=== PATIENT | male | born 1990 | race Caucasian/White ===

== ENCOUNTER 2020-06-07 15:07 | Emergency (ER) | payer BC, SELFPAY ==
--- NOTE | ~2020-06-07 | XR_ITS ---
EXAMINATION: XR abdomen/kub 1V DATE: 06/07/2020 16:05 INDICATION: Vomiting. TECHNIQUE: A supine view of the abdomen on 2 radiographs was obtained. COMPARISON: None. FINDINGS: There are no dilated loops of bowel. There is a small volume of stool in the colon. IMPRESSION: 1. Normal bowel gas pattern. Reviewed, dictated and finalized at location A. TRY BREEDER
--- NOTE | 2020-06-07 15:15 | ED.GENADULT ---
HPI - General Adult General Chief complaint: Abdominal Pain Stated complaint: Ulcers Time Seen by Provider: 06/07/20 15:15 Source: patient Mode of arrival: ambulatory Limitations: no limitations History of Present Illness HPI narrative: 29-year-old male patient presents to the [facility] with complaints of vomiting and some abdominal pain. Patient states that when he was in the he started having some episodes of vomiting and was told it was anxiety. Patient states at that time he was treated with Zofran and Prozac and states that it did go away. Patient states recently he has had a lot of changes in his life and states that he recently had a new baby that is about 6 weeks old and recently also lost his niece who is only 7 weeks old. Patient states he is not currently on Prozac or any antidepressants at this time. Patient states he is supposed to be seen Dr. Barton sometime next month however when confirmed about when his appointment is Dr. Barton's office do not have him down for an appointment. Patient states that today he has vomited about 3 times. Patient states that the vomiting episodes are getting worse and are coming daily now for the past month. Patient also states he has had some soreness to his abdomen specifically after he has done vomiting. Patient states he is also noticed that his bowel habits are changed and he is only having a bowel movement about once every 3 days. Patient also noticed that his belly is more distended than normal. Patient denies taking any type of MiraLAX or stool softeners. Patient denies any fevers, body aches or chills. Denies any chest pain, shortness of breath. Patient states that the only thing that helps his symptoms of smoking marijuana. Related Data Home Medications Medication Instructions Recorded Confirmed No Home Medications 06/07/20 06/07/20 Allergies Allergy/AdvReac Type Severity Reaction Status Date / Time No Known Allergies Allergy Unverified 06/07/20 15:24 Review of Systems Review of Systems: Narrative: CONSTITUTIONAL: Denies fever, chills, or sweats. EYES: Denies visual changes, redness, or discharge. ENT: Denies rhinorrhea, congestion, sore throat, or otalgia. CARDIOVASCULAR: Denies chest pain, palpitations, or edema. RESPIRATORY: Denies cough or dyspnea. GASTROINTESTINAL: Positive abdominal pain, nausea, vomiting, denies diarrhea. GENITOURINARY: Denies dysuria or hematuria. SKIN: Denies rash or itching. MUSCULOSKELETAL: Denies back pain, joint pain, or myalgia. NEUROLOGIC: Denies headache, numbness, or weakness. PSYCHIATRIC: Positive anxiety and depression. [facility] Past Medical History Medical History (Updated 06/07/20 @ 16:24 by DENNIS Miller) Anxiety Depression Fractures Right hand Hypertension PTSD (post-traumatic stress disorder) Social History Social History (Updated 06/07/20 @ 15:17 by DENNIS Miller) Smoking packs per day: 0.5 Smoking cigarettes per day: 10.0 Years smoked: 8 Smoking pack-years: 4.00 Comments At the time of my signature I agree with nursing past medical history, surgical, social, and family history. There is no relevant family history pertinent to the presenting complaint. Exam Narrative: Exam Narrative: GENERAL: Well-appearing, well-nourished, and in no acute distress. HEAD: Normocephalic, atraumatic. EYES: PERRLA and EOMI. ENT: Nares clear, no rhinorrhea or epistaxis. Mucous membranes moist. NECK: Supple. No lymphadenopathy CHEST: Clear to auscultation. No respiratory distress. HEART: Regular rate and rhythm. No murmur heard. Normal peripheral pulses. ABDOMEN: Soft, flat, nondistended. No guarding, rebound tenderness, or rigid. Patient does have some left lower quadrant abdominal tenderness. No pulsatilla masses. Hyperactive bowel sounds present in all four quadrants. No organomegaly. Negative Montalvo?s sign. No periumbicial tenderness. No Supra public tenderness or distension. Good fe
[2020-06-07 15:28] VITALS: BP 132/92; PULSE 94; RESP 20; TEMP 36.7; O2SAT 98
[2020-06-07] MEDS: ONDANSETRON HCL ODT 4 MG TABLET PO (16:05)
[2020-06-08 12:21] LABS: SARS-CoV-2 RNA PCR Negative
== END 2020-06-07 16:45 | disposition short-term general hospital (02) ==
PROVIDERS: Emergency Provider Nurse Practitioner Family; PCP Family Medicine
DX: R10.32 Left lower quadrant pain (principal); Z20.822 Contact with and (suspected) exposure to COVID-19; R11.2 Nausea with vomiting, unspecified; I10 Essential (primary) hypertension; F17.210 Nicotine dependence, cigarettes, uncomplicated
CPT/HCPCS: 74018; 87426; 99213; A9270; C9803; G0463; U0003; U0005

== ENCOUNTER 2020-11-16 10:55 | Emergency (ER) | payer BC, SELFPAY ==
[2020-11-16 11:02] VITALS: BP 142/93; PULSE 83; RESP 20; TEMP 36.9; O2SAT 99
--- NOTE | 2020-11-16 11:30 | ED.URI ---
HPI - URI/Sore Throat General Chief Complaint: Upper Respiratory Infection Stated Complaint: Possible Strep Throat Time Seen by Provider: 11/16/20 11:30 Source: patient and family History of Present Illness HPI Narrative: Patient presents with a sore throat. No trouble swallowing no drooling. Patient denies any other symptoms. Related Data Allergies Allergy/AdvReac Type Severity Reaction Status Date / Time strawberry Allergy Mild Unknown Verified 11/16/20 11:36 Review of Systems Review of Systems: CONSTITUTIONAL: Denies fever, chills, or sweats. EYES: Denies visual changes, redness, or discharge. ENT: Denies rhinorrhea, congestion, sore throat, or otalgia. CARDIOVASCULAR: Denies chest pain, palpitations, or edema. RESPIRATORY: Denies cough or dyspnea. GASTROINTESTINAL: Denies abdominal pain, nausea, vomiting, or diarrhea. GENITOURINARY: Denies dysuria or hematuria. SKIN: Denies rash or itching. MUSCULOSKELETAL: Denies back pain, joint pain, or myalgia. NEUROLOGIC: Denies headache, numbness, or weakness. PSYCHIATRIC: Denies anxiety or depression. [facility], [facility] Past Medical History Medical History (Updated 11/16/20 @ 12:06 by DENNIS Mirza) Anxiety Depression Fractures Right hand Hypertension PTSD (post-traumatic stress disorder) Upper respiratory infection, viral Social History Social History Smoking packs per day: 0.5 Smoking cigarettes per day: 10.0 Years smoked: 8 Smoking pack-years: 4.00 Comments At time of signature, agree with nursing past medical, surgical, social and family history. There is no relevant family history pertinent to the presenting complaint Exam Narrative: GENERAL: Well-appearing, well-nourished, and in no acute distress. HEAD: Normocephalic, atraumatic. EYES: PERRLA and EOMI. ENT: Nares clear, no rhinorrhea or epistaxis. Mucous membranes moist. NECK: Supple. CHEST: Clear to auscultation. No respiratory distress. HEART: Regular rate and rhythm. No murmur heard. Normal peripheral pulses. ABDOMEN: Soft, nontender, nondistended, normal active bowel sounds. EXTREMITIES: Normal range of motion. No edema. SKIN: Warm, dry, no rash. NEURO: No focal deficits. Alert and oriented x3. [place] Coma Scale Eye Opening: Spontaneous 4 [place] Coma Scale Motor: Obeys Commands 6 [place] Coma Scale Verbal: Oriented 5 Stacey Coma Scale Total 15 Course Vital Signs Vital signs: Vital Signs Temperature 36.9 C 11/16/20 11:02 Pulse Rate 83 11/16/20 11:02 Respiratory Rate 20 11/16/20 11:02 Blood Pressure 142/93 H 11/16/20 11:02 Pulse Oximetry 99 11/16/20 11:02 Temperature 36.9 C 11/16/20 11:02 Pulse Rate 83 11/16/20 11:02 Respiratory Rate 20 11/16/20 11:02 Blood Pressure 142/93 H 11/16/20 11:02 Pulse Oximetry 99 11/16/20 11:02 Addressed elevated BP today. Today's blood pressure higher than recommended range. Discussed importance of follow -up with PCP and possible terminal block assembler effects/cardiovascular events related to HTN. Currently patient denies headache, dizziness, vision changes, CP or shortness of breath. Critical dx considered and discussed with pt. Educated patient on red flag s/s and to go to ED if s/s occur. Discussed with pt when to return to [facility] or primary care provider. Pt gave verbal undertstanding, all questions were answered, and pt was agreeable to plan Regarding diagnosis, Regarding diagnostic results, Regarding treatment plan, Regarding prescription, Patient indicated understanding of instructions. Critical dx considered and discussed with pt. Educated patient on red flag s/s and to go to ED if s/s occur. Discussed with pt when to return to [facility] or primary care provider. Pt gave verbal undertstanding, all questions were answered, and pt was agreeable to plan.. MDM - URI/Sore Throat Differential Diagnosis Differential diagnosis: Likely upper respiratory infection, croup
== END 2020-11-16 12:25 | disposition home or self-care (01) ==
PROVIDERS: Emergency Provider Nurse Practitioner Family; PCP Physician Assistant
DX: J02.9 Acute pharyngitis, unspecified (principal); J06.9 Acute upper respiratory infection, unspecified; Z20.822 Contact with and (suspected) exposure to COVID-19; I10 Essential (primary) hypertension; F17.210 Nicotine dependence, cigarettes, uncomplicated
CPT/HCPCS: 87081; 87426; 87880; 99213; C9803; G0463

== ENCOUNTER 2021-02-28 09:14 | Emergency (ER) | payer BC, SELFPAY ==
[2021-02-28 09:30] VITALS: BP 132/83; PULSE 78; RESP 18; TEMP 37.2; O2SAT 96
--- NOTE | 2021-02-28 09:41 | ED.URI ---
HPI - URI/Sore Throat General Chief Complaint: Upper Respiratory Infection Stated Complaint: Sore throat. Time Seen by Provider: 02/28/21 09:58 Source: patient and RN notes reviewed Mode of arrival: ambulatory Limitations: no limitations History of Present Illness HPI Narrative: 30-year-old male presents concern for nasal congestion, sore throat, rhinorrhea. Denies cough, shortness of breath. Denies Covid exposure. MD elicited complaint: sore throat Related Data Allergies Allergy/AdvReac Type Severity Reaction Status Date / Time strawberry Allergy Mild Unknown Verified 11/16/20 11:36 Review of Systems Review of Systems: CONSTITUTIONAL: Denies malaise, chills, sweats, or fever. EYES: Denies visual changes, redness, or discharge. ENT: Reports rhinorrhea, congestion, sore throat. Denies sinus pain, otalgia CARDIOVASCULAR: Denies chest pain, palpitations, or edema. RESPIRATORY: Denies cough. Denies dyspnea. GASTROINTESTINAL: Denies abdominal pain, nausea, vomiting, diarrhea SKIN: Denies rash or itching. MUSCULOSKELETAL: Denies myalgia. NEUROLOGIC: Denies headache. All systems reviewed & are unremarkable except as noted in HPI and below PMFSH Past Medical History Medical History (Updated 02/28/21 @ 10:07 by Evelin Figueroa NP) Anxiety Depression Fractures Right hand Hypertension PTSD (post-traumatic stress disorder) Upper respiratory infection, viral Social History Social History Smoking packs per day: 0.5 Smoking cigarettes per day: 10.0 Years smoked: 8 Smoking pack-years: 4.00 Comments At time of signature, agree with nursing past medical, surgical, social and family history. There is no relevant family history pertinent to the presenting complaint Exam Narrative: GENERAL: Well-appearing, well-nourished, and in no acute distress. HEAD: Normocephalic EYES: PERRLA, conjunctivae clear ENT: Nares clear, turbinates edematous and erythematous, clear discharge. Mucous membranes moist. TM pearly verdugo with dull light reflex bilaterally; no tragal tenderness. Oropharynx not erythematous without lesions. Tonsils not enlarged and without exudate, no drooling, no hoarseness, no trismus, uvula midline. NECK: Supple. No lymphadenopathy CHEST: Clear to auscultation, breath sounds equal. No wheezing, rhonchi, rales, or stridor. No respiratory distress, speaks in full sentences. HEART: Regular rate and rhythm. No murmur heard. SKIN: Warm, dry, no rash. NEURO: Alert and oriented x3. PSYCH: Normal mood and affect Course Course Emergency Course: Patient is aware of diagnosis, understands and agrees to treatment plan. Anticipatory guidance given. Patient agrees to follow-up as directed and is aware of reasons to seek care at the emergency department. Portions of this record may have been created with voice recognition software Vital Signs Vital signs: Vital Signs Temperature 98.9 F 02/28/21 09:30 Pulse Rate 78 02/28/21 09:30 Respiratory Rate 18 02/28/21 09:30 Blood Pressure 132/83 02/28/21 09:30 Pulse Oximetry 96 02/28/21 09:30 Temperature 98.9 F 02/28/21 09:30 Pulse Rate 78 02/28/21 09:30 Respiratory Rate 18 02/28/21 09:30 Blood Pressure 132/83 02/28/21 09:30 Pulse Oximetry 96 02/28/21 09:30 Reviewed. MDM - URI/Sore Throat MDM Narrative Medical decision making narrative: Differential diagnosis considered: [place] virus, strep pharyngitis, allergic rhinitis, upper respiratory tract infection, sinusitis, rhinosinusitis, nasopharyngitis. viral pharyngitis, otitis media, otitis externa, pneumonia, bronchitis, viral cough syndrome, viral syndrome, and influenza. Exam findings show no acute concerns or changes; patient is non-toxic appearing and is in no distress. Patient is appropriate for outpatient treatment and follow-up. Lab Data Attestation: I reviewed the patient's lab results. Labs: Strep Screen Pre
== END 2021-02-28 10:19 | disposition home or self-care (01) ==
PROVIDERS: Emergency Provider Nurse Practitioner
DX: J06.9 Acute upper respiratory infection, unspecified (principal); I10 Essential (primary) hypertension; F17.210 Nicotine dependence, cigarettes, uncomplicated
CPT/HCPCS: 87081; 87880; 99213; G0463

== ENCOUNTER 2021-04-18 09:09 | Emergency (ER) | payer BC, SELFPAY ==
[2021-04-18 09:15] VITALS: BP 138/85; PULSE 67; RESP 18; TEMP 37; O2SAT 98
--- NOTE | 2021-04-18 10:06 | ED.GENADULT ---
HPI - General Adult General Chief complaint: Nausea/Vomiting/Diarrhea Stated complaint: abdom pains and nausea Source: patient Mode of arrival: ambulatory Limitations: no limitations History of Present Illness HPI narrative: Patient presents for evaluation of nausea, vomiting, abdominal pain for the last 3 days. Pain is in bilateral upper quadrants and lower quadrants. Pain in bilateral upper quadrants is more noticeable when standing and pain in bilateral lower quadrants in more noticeable when seated. Pain is fairly constant, described as stabbing, rated 6/10 in severity. He has experienced hot flashes and feeling clammy . No fever, chills, respiratory symptoms, change in bowel pattern. Last bowel movement was this morning, solid in consistency, without the presence of blood or mucous in the stool. No one in the home has similar symptoms. No recent ETOH use. He does smoke marijuana about six times per day. No hx of abdominal surgeries. He has not received COVID vaccinations. He did havd COVID infection in December 2020. No additional complaints or concerns. Related Data Allergies Allergy/AdvReac Type Severity Reaction Status Date / Time strawberry Allergy Mild Unknown Verified 04/18/21 09:14 Review of Systems Review of Systems: CONSTITUTIONAL: Reports hot flashes and feeling clammy . Denies fever and chills. EYES: Denies visual changes, redness, or discharge. ENT: Denies rhinorrhea, congestion, sore throat, or otalgia. CARDIOVASCULAR: Denies chest pain, palpitations, or edema. RESPIRATORY: Denies cough or dyspnea. GASTROINTESTINAL: Reports abdominal pain, nausea and vomiting GENITOURINARY: Denies dysuria or hematuria. SKIN: Denies rash or itching. MUSCULOSKELETAL: Denies back pain, joint pain, or myalgia. NEUROLOGIC: Denies headache, numbness, dizziness, or weakness. PSYCHIATRIC: Denies anxiety or depression. [facility] Past Medical History Medical History (Updated 04/18/21 @ 10:22 by Ash Becerra, DENNIS, RICARDO) Anxiety Depression Fractures Right hand Hypertension PTSD (post-traumatic stress disorder) Upper respiratory infection, viral Surgical History Surgical History (Updated 04/18/21 @ 10:11 by Ash Becerra, DENNIS, RICARDO) No pertinent past surgical history Family History Family History (Updated 04/18/21 @ 10:19 by DENNIS Sanders, ) Mother History of breast cancer Social History Social History Smoking packs per day: 0.5 Smoking cigarettes per day: 10.0 Years smoked: 8 Smoking pack-years: 4.00 Smoking status: Former smoker Substance use: current Substance use type: marijuana Other substance usage details: six times per day Gender identity (if verbalized by the patient): Male Sexual Orientation (if Verbalized by the Patient): Straight or Heterosexual Spiritual care concerns: No Exam Narrative: GENERAL: Well-appearing, well-nourished, and in no acute distress. HEAD: Normocephalic, atraumatic. EYES: PERRLA and EOMI. ENT: Nares clear, no rhinorrhea or epistaxis. Mucous membranes moist. Oropharynx without tonsillar hypertrophy exudate or other lesions. Bilateral TMs pearly verdugo nonbulging NECK: Supple. No adenopathy or masses. No carotid bruits or JVD CHEST: Clear to auscultation. No respiratory distress. No wheezes rales or rhonchi HEART: Regular rate and rhythm. No murmur heard. Normal peripheral pulses. ABDOMEN: Soft, tenderness in LUQ without rebound or guarding. Abdomen is nondistended, normal active bowel sounds. EXTREMITIES: Normal range of motion. No edema. SKIN: Warm, dry, no rash. NEURO: No focal deficits. Alert and oriented x3. PSYCH: Normal mood and affect. Course Course Emergency Course: This is a 30-year-old male who presented with complaints of nausea, vomiting, abdominal pain. Influenza and COVID were negative. Patient was tender in left upper quadrant on exam. I recommended he go t
[2021-04-19 10:57] LABS: SARS-CoV-2 RNA PCR Negative
== END 2021-04-18 10:25 | disposition home or self-care (01) ==
PROVIDERS: Emergency Provider Nurse Practitioner
DX: R11.2 Nausea with vomiting, unspecified (principal); R10.84 Generalized abdominal pain; Z20.822 Contact with and (suspected) exposure to COVID-19; Z87.891 Personal history of nicotine dependence; I10 Essential (primary) hypertension
CPT/HCPCS: 87426; 87804; 99213; C9803; G0463; U0003; U0005

== ENCOUNTER 2021-10-10 11:28 | Emergency (ER) | payer BC, SELFPAY ==
[2021-10-10 11:30] VITALS: BP 132/80; PULSE 76; RESP 14; TEMP 37.3; O2SAT 98
--- NOTE | 2021-10-10 11:31 | ED.URI ---
HPI - URI/Sore Throat General Chief Complaint: Upper Respiratory Infection Stated Complaint: sore throat Time Seen by Provider: 10/10/21 11:32 Source: patient and RN notes reviewed History of Present Illness HPI Narrative: Patient is a 30-year-old male who presents the urgent care with complaints of a sore throat since Sunday. Patient states that he has been brushing with peroxide and gargling mouthwash. States that he did take ibuprofen 1 time. Denies of any further upper respiratory complaints, ill exposures, fever, nausea or vomiting. No other acute complaints. No acute distress noted. Patient aware of the plan of care. Some parts of this dictation were generated by voice recognition software and may contain typographical and/or grammatical inaccuracies. Related Data Home Medications Medication Instructions Recorded Confirmed No Home Medications 10/10/21 10/10/21 Allergies Allergy/AdvReac Type Severity Reaction Status Date / Time strawberry Allergy Mild Unknown Verified 10/10/21 11:36 Review of Systems Review of Systems: CONSTITUTIONAL: Denies fever, chills, or sweats. EYES: Denies visual changes, redness, or discharge. ENT: Denies rhinorrhea, congestion, or otalgia. Reports of sore throat CARDIOVASCULAR: Denies chest pain, palpitations, or edema. RESPIRATORY: Denies cough or dyspnea. GASTROINTESTINAL: Denies abdominal pain, nausea, vomiting, or diarrhea. GENITOURINARY: Denies dysuria or hematuria. SKIN: Denies rash or itching. MUSCULOSKELETAL: Denies back pain, joint pain, or myalgia. NEUROLOGIC: Denies headache, numbness, or weakness. All other systems reviewed are negative, except as documented in HPI. [facility] Past Medical History Medical History (Updated 10/10/21 @ 11:45 by DENNIS Torres) Anxiety Depression Fractures Right hand Hypertension PTSD (post-traumatic stress disorder) Upper respiratory infection, viral Surgical History Surgical History (Updated 04/18/21 @ 10:11 by Ash Becerra, DENNIS, RICARDO) No pertinent past surgical history Family History Family History (Updated 04/18/21 @ 10:19 by DENNIS Sanders, RICARDO) Mother History of breast cancer Social History Social History Smoking packs per day: 0.5 Smoking cigarettes per day: 10.0 Years smoked: 8 Smoking pack-years: 4.00 Smoking status: Former smoker Substance use: current Substance use type: marijuana Other substance usage details: six times per day Gender identity (if verbalized by the patient): Male Sexual Orientation (if Verbalized by the Patient): Straight or Heterosexual Spiritual care concerns: No Comments At the time of my signature, I reviewed and agree with the nursing past medical, surgical, social, and family history. There is no relevant family history pertinent to the patient complaint. Exam Narrative: GENERAL: This is a well-nourished, well-developed patient, in no apparent distress. HEAD: normocephalic, atraumatic. EYES: PERRL. Sclera clear/white. Vision is grossly intact. EARS: External ears normal, auditory canals clear and without drainage, TMs normal without perforation. Hearing grossly intact. NOSE: External nose normal with no obvious nasal discharge, nares without redness, no rhinorrhea. THROAT: Mucous membranes moist, mild erythema noted posterior pharynx with exudate or ulceration. Moderate postnasal drainage. NECK: Neck supple, non-tender without lymphadenopathy CARDIOVASCULAR: Regular rate and rhythm without murmurs, gallops, or rubs. RESPIRATORY: Clear to auscultation. Breath sounds equal bilaterally. No wheezes, rales, or rhonchi. SKIN: warm, intact with no suspicious lesions or rash, good texture and turgor. NEURO: awake, alert, and oriented to person, place and time. There were no obvious focal neurologic abnormalities. EXTREMITIES: No clubbing, cyanosis, or edema. Course Course Level of Care
== END 2021-10-10 11:51 | disposition home or self-care (01) ==
PROVIDERS: Emergency Provider Nurse Practitioner Family
DX: J02.9 Acute pharyngitis, unspecified (principal); Z87.891 Personal history of nicotine dependence; I10 Essential (primary) hypertension
CPT/HCPCS: 87081; 99212; G0463

== ENCOUNTER 2022-03-03 11:40 | Emergency (ER) | payer OTHER, SELFPAY ==
[2022-03-03 11:45] VITALS: BP 132/76; PULSE 75; RESP 16; TEMP 37.2; O2SAT 98
--- NOTE | 2022-03-03 14:29 | ED.URI ---
HPI - URI/Sore Throat General Chief Complaint: Upper Respiratory Infection Stated Complaint: coughing blood chills trouble breathing Time Seen by Provider: 03/03/22 14:20 Source: patient, RN notes reviewed and old records reviewed Mode of arrival: ambulatory Limitations: no limitations History of Present Illness HPI Narrative: 31 year old male presents to express care with complaints since day before Thanksgiving of not feeling well. He states that he has felt feverish, had body aches, cough, some shortness of breath and a lot of nausea. Patient reports that he has some tonsil stones and he got them out on Sunday, since then has noticed small bites of blood when he cough, and some brownish phlegm at times. Patient reports that he has noticed some shortness of breath with cough and also some with exertion. He is daily tobacco smoker. Patient reports that he has taken Iburofen and Tylenol and also NyQuil for his symptoms. MD elicited complaint: fever, cough (small amts of red blood and brown phlegm) and other (body aches) Pain scale (0-10): 6 Treatments prior to arrival: acetaminophen, ibuprofen and other (NyQuil) Related Data Allergies Allergy/AdvReac Type Severity Reaction Status Date / Time strawberry Allergy Mild Unknown Verified 03/03/22 13:18 Review of Systems Review of Systems: CONSTITUTIONAL: Reports some malaise, chills, sweats, or fever. EYES: Denies visual changes, redness, or discharge. ENT: Reports rhinorrhea, congestion, sinus pain, no otalgia positive for sore throat. CARDIOVASCULAR: Denies chest pain, palpitations, or edema. RESPIRATORY: Reports cough.? Reports some dyspnea at times with cough and also exertion, states some scant amts of blood noted with cough and brown phlegm GASTROINTESTINAL: Denies abdominal pain, nausea, vomiting, diarrhea SKIN: Denies rash or itching. MUSCULOSKELETAL: Reports myalgia. NEUROLOGIC: Denies headache. All systems reviewed & are unremarkable except as noted in HPI and below [facility] Past Medical History Medical History (Updated 03/04/22 @ 00:00 by Background Daemon) Anxiety Depression Fractures Right hand Hypertension PTSD (post-traumatic stress disorder) Upper respiratory infection, viral Surgical History Surgical History (Updated 03/06/22 @ 13:43 by Haydee Garvin NP) No pertinent past surgical history S/P wisdom tooth extraction Family History Family History (Updated 04/18/21 @ 10:19 by Ash Becerra, SPORTS EDITOR, ) Mother History of breast cancer Social History Social History (Updated 03/06/22 @ 14:08 by Haydee Garvin NP) Smoking packs per day: 0.5 Smoking cigarettes per day: 10.0 Years smoked: 12 Smoking pack-years: 6.00 Smoking status: Current every day smoker Tobacco type: cigarettes Substance use: current Substance use type: marijuana Other substance usage details: six times per day Gender identity (if verbalized by the patient): Male Sexual Orientation (if Verbalized by the Patient): Straight or Heterosexual Spiritual care concerns: No Comments At time of signature, agree with nursing past medical, surgical, social and family history. There is no relevant family history pertinent to the presenting complaint Exam Narrative: GENERAL: Well-appearing, well-nourished, and in no acute distress. HEAD: Normocephalic EYES: PERRLA, conjunctivae clear ENT: Nares clear, turbinates edematous and erythematous, clear discharge. Mucous membranes moist. TM pearly verdugo with dull light reflex bilaterally; no tragal tenderness. Oropharynx erythematous without lesions. Tonsils mildly enlarged, no exudates or lesions, no drooling, no hoarseness, no trismus, uvula midline, post nasal drainage noted NECK: Supple. No lymphadenopathy CHEST: Clear to auscultation, breath sounds equal. No wheezing, rhonchi, rales, or stridor. No respiratory distress, speaks in full sentences.productive cough no tachypnea or any retractions SAO2
== END 2022-03-03 14:36 | disposition home or self-care (01) ==
PROVIDERS: Emergency Provider Registered Nurse
DX: J06.9 Acute upper respiratory infection, unspecified (principal); I10 Essential (primary) hypertension; F17.210 Nicotine dependence, cigarettes, uncomplicated
CPT/HCPCS: 87804; 99213; G0463

== ENCOUNTER 2022-05-30 09:10 | Emergency (ER) | payer OTHER, SELFPAY ==
[2022-05-30 09:15] VITALS: BP 144/87; PULSE 98; RESP 16; TEMP 37.4; O2SAT 100
--- NOTE | 2022-05-30 09:45 | ED.GENADULT ---
HPI - General Adult General Chief complaint: Back Pain/Injury Stated complaint: Low Back Pain Source: patient and RN notes reviewed History of Present Illness HPI narrative: 31-year-old male presents to urgent care complaints of right lower back pain. Patient states yesterday he was having polyuria which is abnormal for him. Patient states last night his left lower back began to hurt. Patient denies any radiation of this pain. Patient denies any burning with urination. Denies any penile discharge, abdominal pain, vomiting, diarrhea, fevers, or chills. Patient has not taken anything for his pain. Some parts of this dictation were generated by voice recognition software and may contain typographical and/or grammatical inaccuracies. Related Data Allergies Allergy/AdvReac Type Severity Reaction Status Date / Time strawberry Allergy Mild Unknown Verified 03/03/22 13:18 Review of Systems Review of Systems: CONSTITUTIONAL: Denies fever, chills, or sweats. EYES: Denies visual changes, redness, or discharge. ENT: Denies otalgia and sore throat CARDIOVASCULAR: Denies chest pain, palpitations, or edema. RESPIRATORY: Denies cough or dyspnea. GASTROINTESTINAL: Denies abdominal pain, nausea, vomiting, or diarrhea. GENITOURINARY: Denies dysuria or hematuria. SKIN: Denies rash or itching. MUSCULOSKELETAL: Right lower back pain, worsened else with standing or any motion. NEUROLOGIC: Denies headache, numbness, or weakness. [facility] Past Medical History Medical History (Updated 05/30/22 @ 10:07 by Grace Rodriguez, ROX) Anxiety Depression Fractures Right hand Hypertension PTSD (post-traumatic stress disorder) Upper respiratory infection, viral Surgical History Surgical History (Updated 03/06/22 @ 13:43 by Haydee Garvin NP) No pertinent past surgical history S/P wisdom tooth extraction Family History Family History (Updated 04/18/21 @ 10:19 by Ash Becerra, FIELD EDUCATION DIRECTOR, ) Mother History of breast cancer Social History Social History (Updated 03/06/22 @ 14:08 by Haydee Garvin NP) Smoking packs per day: 0.5 Smoking cigarettes per day: 10.0 Years smoked: 12 Smoking pack-years: 6.00 Smoking status: Current every day smoker Tobacco type: cigarettes Substance use: current Substance use type: marijuana Other substance usage details: six times per day Gender identity (if verbalized by the patient): Male Sexual Orientation (if Verbalized by the Patient): Straight or Heterosexual Spiritual care concerns: No Comments At the time of my signature, I reviewed and agree with the nursing past medical, surgical, social, and family history. There is no relevant family history pertinent to the patient complaint. Exam Narrative: GENERAL: This is a well-nourished, well-developed patient, in no apparent distress. HEAD: normocephalic, atraumatic. EYES: PERRL. Sclera clear/white. Vision is grossly intact. EARS: External ears normal, auditory canals clear and without drainage, TMs normal without perforation. Hearing grossly intact. NOSE: External nose normal with no obvious nasal discharge, nares without redness, no rhinorrhea. THROAT: Mucous membranes moist, posterior pharynx clear. NECK: Neck supple, non-tender without lymphadenopathy, masses or thyromegaly. CARDIOVASCULAR: Regular rate and rhythm without murmurs, gallops, or rubs. RESPIRATORY: Clear to auscultation. Breath sounds equal bilaterally. No wheezes, rales, or rhonchi. GASTROINTESTINAL: Abdomen soft, non-tender, nondistended. Bowel sounds are active. No hepato-splenomegaly, or palpable masses. No guarding. SKIN: warm, intact with no suspicious lesions or rash, good texture and turgor. NEURO: awake, alert, and oriented to person, place and time. There were no obvious focal neurologic abnormalities. EXTREMITIES: No clubbing, cyanosis, or edema. No joint tenderness, effusion, or edema noted. BACK: Tender right lower back. Course Course Level of
== END 2022-05-30 10:14 | disposition home or self-care (01) ==
PROVIDERS: Emergency Provider Nurse Practitioner Family
DX: M54.50 Low back pain, unspecified (principal); I10 Essential (primary) hypertension; F17.210 Nicotine dependence, cigarettes, uncomplicated; F12.90 Cannabis use, unspecified, uncomplicated
CPT/HCPCS: 81003; 99213; G0463

== ENCOUNTER 2022-06-16 08:00 | Emergency (ER) | payer OTHER, SELFPAY ==
[2022-06-16 08:06] VITALS: BP 147/91; PULSE 92; RESP 16; TEMP 37.4; O2SAT 99
--- NOTE | 2022-06-16 08:09 | ED.NAVMDI ---
HPI - Nausea/Vomiting/Diarrhea General Chief complaint: Nausea/Vomiting/Diarrhea Stated complaint: nausea Source: patient and RN notes reviewed History of Present Illness HPI Narrative: 31 yo M presents to urgent care with complaints of N/V since Sunday. Pt states his symptoms are worse in the morning and late afternoon. Pt states he will take his Zofran at home and able to keep fluids down but no food. Pt reports a fever today and yesterday as well as a TERAN today. Reports some diarrhea. Denies any abdominal pain, ear pain, chest pain, or SOB. Pt states his throat hurts from vomiting. Related Data Home Medications Medication Instructions Recorded Confirmed No Home Medications 06/16/22 06/16/22 Allergies Allergy/AdvReac Type Severity Reaction Status Date / Time strawberry Allergy Mild Unknown Verified 06/16/22 08:18 Review of Systems Review of Systems: CONSTITUTIONAL: Fever EYES: Denies visual changes, redness, or discharge. ENT: Denies otalgia and sore throat CARDIOVASCULAR: Denies chest pain, palpitations, or edema. RESPIRATORY: Denies cough or dyspnea. GASTROINTESTINAL: Nausea, vomiting, and diarrhea GENITOURINARY: Denies dysuria or hematuria. SKIN: Denies rash or itching. MUSCULOSKELETAL: Denies back pain, joint pain, or myalgia. NEUROLOGIC: Denies headache, numbness, or weakness. [facility] Past Medical History Medical History (Updated 06/16/22 @ 08:17 by Grace Rodriguez, ROX) Anxiety Depression Fractures Right hand Hypertension PTSD (post-traumatic stress disorder) Upper respiratory infection, viral Surgical History Surgical History (Updated 03/06/22 @ 13:43 by Haydee Garvin NP) No pertinent past surgical history S/P wisdom tooth extraction Family History Family History (Updated 04/18/21 @ 10:19 by Ash Becerra, [facility], ) Mother History of breast cancer Social History Social History (Updated 03/06/22 @ 14:08 by Haydee Garvin NP) Smoking packs per day: 0.5 Smoking cigarettes per day: 10.0 Years smoked: 12 Smoking pack-years: 6.00 Smoking status: Current every day smoker Tobacco type: cigarettes Substance use: current Substance use type: marijuana Other substance usage details: six times per day Gender identity (if verbalized by the patient): Male Sexual Orientation (if Verbalized by the Patient): Straight or Heterosexual Spiritual care concerns: No Comments At the time of my signature, I reviewed and agree with the nursing past medical, surgical, social, and family history. There is no relevant family history pertinent to the patient complaint. Exam Narrative: GENERAL: This is a well-nourished, well-developed patient, in no apparent distress. HEAD: normocephalic, atraumatic. EYES: Sclera clear/white. Vision is grossly intact. NOSE: External nose normal with no obvious nasal discharge, nares without redness, no rhinorrhea. THROAT: Mucous membranes moist, posterior pharynx clear. NECK: Neck supple, non-tender without lymphadenopathy, masses or thyromegaly. CARDIOVASCULAR: Regular rate and rhythm without murmurs, gallops, or rubs. RESPIRATORY: Clear to auscultation. Breath sounds equal bilaterally. No wheezes, rales, or rhonchi. GASTROINTESTINAL: Abdomen soft, non-tender, nondistended. Bowel sounds are active. No hepato-splenomegaly, or palpable masses. No guarding. SKIN: warm, intact with no suspicious lesions or rash, good texture and turgor. NEURO: awake, alert, and oriented to person, place and time. There were no obvious focal neurologic abnormalities. Course Course Level of Care: Express Care Visit Vital Signs Vital signs: Vital Signs Temperature 99.4 F 06/16/22 08:06 Pulse Rate 92 06/16/22 08:06 Respiratory Rate 16 06/16/22 08:06 Blood Pressure 147/91 H 06/16/22 08:06 Pulse Oximetry 99 06/16/22 08:06 Oxygen Delivery Room Air 06/16/22 08:06 Temperature 99.4 F 06/16/22 08:06 Pulse Rate 92 06/16/22
== END 2022-06-16 08:20 | disposition home or self-care (01) ==
PROVIDERS: Emergency Provider Nurse Practitioner Family; PCP Family Medicine
DX: K52.9 Noninfective gastroenteritis and colitis, unspecified (principal); I10 Essential (primary) hypertension; F17.210 Nicotine dependence, cigarettes, uncomplicated
CPT/HCPCS: 99211; G0463

== ENCOUNTER 2022-08-21 09:47 | Emergency (ER) | payer OTHER, SELFPAY ==
[2022-08-21 09:53] VITALS: BP 142/82; PULSE 88; RESP 20; TEMP 36.5; O2SAT 97
--- NOTE | 2022-08-21 10:08 | ED.NAVMDI ---
HPI - Nausea/Vomiting/Diarrhea General Chief complaint: Nausea/Vomiting/Diarrhea Stated complaint: nausea w/blood Time Seen by Provider: 08/21/22 10:15 Source: patient and RN notes reviewed Mode of arrival: ambulatory Limitations: no limitations History of Present Illness HPI Narrative: 31-year-old male presents with concern for vomiting with streaks of blood, epigastric pain. He reports he was seen in the emergency room 2 weeks ago and was prescribed medication for the symptoms. Reports the symptoms improved while taking that medication when he stop taking the medication the symptoms returned. He reports he did not have any diagnostic testing other than blood work in the emergency room, did not have any abdominal scans. The medications he was prescribed the Zofran and pantoprazole. He denies any diarrhea, fever, gross bloody vomitus. He report vomiting mucus with some streaks of blood. He denies decreased appetite, change in his diet. He denies excessive alcohol intake, he says he is not a smoker. MD elicited complaint: nausea and vomiting Related Data Allergies Allergy/AdvReac Type Severity Reaction Status Date / Time strawberry Allergy Mild Unknown Verified 06/16/22 08:18 Review of Systems Review of Systems: CONSTITUTIONAL: Denies malaise, chills, sweats, or fever. ENT: Denies rhinorrhea, congestion, sinus pain, otalgia or sore throat. CARDIOVASCULAR: Denies chest pain, palpitations, or edema. RESPIRATORY: Denies cough or dyspnea. GASTROINTESTINAL: Reports epigastric pain, nausea, vomiting. Denies diarrhea, bloody, black or coffee-ground stools, or mucous stools. GENITOURINARY: Denies dysuria or hematuria. MUSCULOSKELETAL: Denies myalgia. NEUROLOGIC: Denies headache. All systems reviewed & are unremarkable except as noted in HPI and below [facility] Past Medical History Medical History (Updated 08/21/22 @ 10:22 by Evelin Figueroa NP) Anxiety Depression Fractures Right hand Hypertension PTSD (post-traumatic stress disorder) Upper respiratory infection, viral Surgical History Surgical History (Updated 03/06/22 @ 13:43 by Haydee Garvin NP) No pertinent past surgical history S/P wisdom tooth extraction Family History Family History (Updated 04/18/21 @ 10:19 by Ash Becerra, SECONDS INSPECTOR, ) Mother History of breast cancer Social History Social History (Updated 03/06/22 @ 14:08 by Haydee Garvin NP) Smoking packs per day: 0.5 Smoking cigarettes per day: 10.0 Years smoked: 12 Smoking pack-years: 6.00 Smoking status: Current every day smoker Tobacco type: cigarettes Substance use: current Substance use type: marijuana Other substance usage details: six times per day Gender identity (if verbalized by the patient): Male Sexual Orientation (if Verbalized by the Patient): Straight or Heterosexual Spiritual care concerns: No Comments At time of signature, agree with nursing past medical, surgical, social and family history. There is no relevant family history pertinent to the presenting complaint Exam Narrative: GENERAL: Well-appearing, well-nourished, and in no acute distress. HEAD: Normocephalic, atraumatic. EYES: PERRLA, conjunctivae clear, and EOMI. ENT: Nares clear. Mucous membranes moist. NECK: Supple. No lymphadenopathy CHEST: Speaks in full sentences. No respiratory distress. HEART: Regular rate and rhythm. ABDOMEN: Soft, flat, nondistended, mild left lower quadrant tenderness. No guarding, rebound tenderness, or rigidity. No pulsatile masses. Bowel sounds present in all four quadrants. No organomegaly. Negative Montalvo?s sign. No periumbilical tenderness. No Supra public tenderness or distension. SKIN: Warm, dry, no rash. NEURO: Alert and oriented x3. PSYCH: Normal mood and affect Course Course Emergency Course: Patient denies history of cardiac problems or prolonged QT, patient has taken Zofran in the past without issue Patient is aware of diagno
== END 2022-08-21 10:30 | disposition home or self-care (01) ==
PROVIDERS: Emergency Provider Nurse Practitioner
DX: K29.70 Gastritis, unspecified, without bleeding (principal); I10 Essential (primary) hypertension
CPT/HCPCS: 99213; G0463

== ENCOUNTER 2022-09-21 10:45 | Outpatient (CLI) | payer OTHER, SELFPAY ==
[2022-09-21 19:32] LABS: Alanine Aminotransferase 25 U/L (6-50); Albumin Level 4.4 g/dL (3.5-5.1); Alkaline Phosphatase 65 U/L (38-126); Anion Gap 6 mmol/L (8-16); Aspartate Amino Transferase 41 U/L (17-59); Bilirubin,Total 0.6 mg/dL (0.2-1.3); Blood Urea Nitrogen 13 mg/dL (9-20); Calcium 9.3 mg/dL (8.4-10.2); Carbon Dioxide 26 mmol/L (22-30); Chloride 108 mmol/L (98-107); Cholesterol 112 mg/dL (0-200); Estimated Glomerular Filt Rate > 60; Glucose 87 mg/dL (65-110); HDL Direct 27 mg/dL; Lipase 118 U/L (23-300); Magnesium 2.3 mg/dL (1.6-2.3); Potassium 4.3 mmol/L (3.4-5.0); Sodium 140 mmol/L (137-145); Triglycerides 67 mg/dL (<150)
[2022-09-21 19:35] LABS: Amylase 75 U/L (30-110)
[2022-09-21 19:43] LABS: LDL Cholesterol Direct 73 mg/dL
[2022-09-21 19:49] LABS: Basophils Absolute Auto 0.1 K/mm3 (0.0-0.1); Basophils Percent Auto 0.7 % (0.2-1.2); Eosinophils Absolute Auto 0.2 K/mm3 (0-0.3); Eosinophils Percent Auto 2.8 % (0-4.4); Hematocrit 45.4 % (42.0-52.0); Hemoglobin 14.7 g/dL (14.0-18.0); Immature Granulocyte Absolute 0.02 K/mm3 (0.00-0.031); Immature Granulocyte Percent A 0.3 % (0-0.5); Lymphocytes Absolute Auto 2.12 K/mm3 (0.9-3.2); Lymphocytes Percent Auto 28.3 % (18.3-44.2); Mean Corpuscular HGB Conc 32.4 g/dl (32-36); Mean Corpuscular Hemoglobin 28.6 pg (26-34); Mean Corpuscular Volume 88.3 fl (80-100); Mean Platelet Volume 11.6 fl (7.4-10.4); Monocytes Absolute Auto 0.6 K/mm3 (0.1-0.6); Neutrophils Absolute Auto 4.5 K/mm3 (1.3-6.7); Neutrophils Percent Auto 59.9 % (45.5-73.1); Platelet Count Result 227 k/mm3 (150-375); Red Blood Count 5.14 M/mm3 (4.6-6.20); Red Cell Distribution Width 13.2 % (11.5-14.5); White Blood Count 7.5 K/mm3 (4.5-10.0)
[2022-09-25 20:31] LABS: H pylori, Urea Breath NOT DETECTED (NOT DETECTED)
== END 2022-09-21 10:46 | disposition home or self-care (01) ==
PROVIDERS: PCP Nurse Practitioner Adult Health; Visit Provider Nurse Practitioner Adult Health
DX: K21.9 Gastro-esophageal reflux disease without esophagitis (principal); R10.9 Unspecified abdominal pain; R03.0 Elevated blood-pressure reading, without diagnosis of hypertension; F41.9 Anxiety disorder, unspecified
CPT/HCPCS: 36415; 80053; 80061; 82150; 83013; 83690; 83735; 84443; 85025

== ENCOUNTER 2022-10-19 03:41 | Day surgery (SDC) | payer OTHER, SELFPAY ==
[2022-10-10 07:34] VITALS: BMI 29.0
--- NOTE | 2022-10-18 16:12 | PM.HPGS ---
History of Present Illness History of Present Illness Consent: Risks, benefits, and alternatives have been discussed and questions answered. Patient agrees to proceed with procedure. Chief complaint: hematemesis, Narrative: Kirill Alcantar is a 31 year old male With persistent nausea and vomiting. He has had a couple of visits to emergency room with these symptoms. Zofran briefly eliminates these symptoms. he has vomited blood on a few occasions. He has had diarrhea intermittently as well. Review of Systems Review of Systems: All systems reviewed & are unremarkable except as noted in HPI and below PMFSH Past Medical History Medical History Anxiety Depression Fractures Right hand Hypertension PTSD (post-traumatic stress disorder) Upper respiratory infection, viral Surgical History Surgical History No pertinent past surgical history S/P wisdom tooth extraction Family History Family History Mother History of breast cancer Father EtOH dependence Hypertension Depression Mother Cancer Hypertension Depression Sibling Depression Social History Social History Smoking packs per day: 0.5 Smoking cigarettes per day: 10.0 Years smoked: 10 Smoking pack-years: 5.00 Smoking status: Current every day smoker Tobacco type: cigarettes Alcohol intake: never Drinks per week: 2 Alcohol use details: Beer Substance use: current Substance use type: marijuana Other substance usage details: edibles and smoking marijuana daily Lack of Transportation: No Lack of Food: Never True Current Housing: I Have Housing Concerned About Future Housing: No Difficulty Paying Gas/Electric Bills: No Difficulty Paying for Meds: No Currently Unemployed: No Education: Associate Degree Difficulty w/ Childcare or Family Care: No Living arrangements: with family Additional occupation/education comments: [employer] Gender identity (if verbalized by the patient): Male Sexual Orientation (if Verbalized by the Patient): Straight or Heterosexual Spiritual care concerns: No Agree to blood products: Yes Meds Home Medications and Allergies Home Medications Medication Instructions Recorded Confirmed Type ondansetron 4 mg disintegrating 4 mg PO Q8H PRN nausea and 08/21/22 10/19/22 Rx tablet vomiting #10 tabs escitalopram oxalate 5 mg tablet 5 mg PO DAILY #30 tabs 06/22/23 07/20/23 Rx (Lexapro) pantoprazole 40 mg tablet,delayed 40 mg PO QAM #30 tabs 09/21/22 10/19/22 Rx release (Protonix) Allergies Allergy/AdvReac Type Severity Reaction Status Date / Time strawberry Allergy Mild Unknown Verified 10/19/22 08:41 aloe Allergy Hives Verified 10/19/22 08:41 diphenhydramine Allergy Swelling Verified 10/19/22 08:41 [From Benadryl] of Lip/Tongue/Throat Exam Const: General: alert Orientation/consciousness: patient oriented x3 Resp: Auscultation: clear to auscultation bilaterally Cardio: Rhythm: regular rhythm GI: GI Palp: Yes Soft to palpation and No Tenderness to palpation present (GI) Neuro: General: patient oriented x3 Assessment and Plan Assessment and plan (1) Nausea and vomiting: Qualifiers: Vomiting Intractability: non-intractable Vomiting type: unspecified Qualified Code(s): R11.2 - Nausea with vomiting, unspecified Code(s): R11.2 - Nausea with vomiting, unspecified Status: Acute Assessment and Plan: EGD with possible biopsy or dilatation or cautery. (2) Chronic diarrhea: Code(s): K52.9 - Noninfective gastroenteritis and colitis, unspecified Status: Acute Assessment and Plan: Colonoscopy with possible biopsy or polypectomy or cautery or injection of substances.
[2022-10-19 08:42] VITALS: BP 133/87; PULSE 82; RESP 20; TEMP 36.7; O2SAT 98; BMI 28.6
--- NOTE | 2022-10-19 08:50 | WPDANESEPPF ---
Anes - Initial Pre Proc Eval Procedure: Operation Date: 10/19/22 10:00 Proposed Procedures p Esophagogastroduodenoscopy & Colonoscopy - Jean Lima MD Date/Time: 10/19/22 08:50 Surgeon: Jean Lima MD Pre Op Diagnosis: hematemesis, Patient Data Age: 31 Gender: M Height: 1.78 m Weight: 90.5 kg Last Vital Signs Temp 98.0 F 10/19/22 08:42 Pulse 82 10/19/22 08:42 Resp 20 10/19/22 08:42 BP 133/87 10/19/22 08:42 Pulse Ox 98 10/19/22 08:42 O2 Del Method Room Air 10/19/22 08:42 Allergies Allergy/AdvReac Type Severity Reaction Status Date / Time strawberry Allergy Mild Unknown Verified 10/19/22 08:41 aloe Allergy Hives Verified 10/19/22 08:41 diphenhydramine Allergy Swelling Verified 10/19/22 08:41 [From Benadryl] of Lip/Tongue/Throat Home Medications Medication Instructions Recorded Confirmed Type ondansetron 4 mg disintegrating 4 mg PO Q8H PRN nausea and 08/21/22 10/19/22 Rx tablet vomiting #10 tabs escitalopram oxalate 5 mg tablet 5 mg PO DAILY #30 tabs 09/21/22 10/19/22 Rx (Lexapro) pantoprazole 40 mg tablet,delayed 40 mg PO QAM #30 tabs 09/21/22 10/19/22 Rx release (Protonix) Patient hx anesthesia problems: none Family hx anesthesia problems: none Results Review: All pre-operative results and documents have been reviewed as part of the pre-operative evaluation. [facility] Past Medical History Medical History (Updated 10/18/22 @ 16:15 by Jean Lima MD) Anxiety Depression Fractures Right hand Hypertension PTSD (post-traumatic stress disorder) Upper respiratory infection, viral Surgical History Surgical History (Updated 03/06/22 @ 13:43 by Haydee Garvin NP) No pertinent past surgical history S/P wisdom tooth extraction Family History Family History (Updated 09/21/22 @ 09:56 by Anny Sykes MA) Mother History of breast cancer Father EtOH dependence Hypertension Depression Mother Cancer Hypertension Depression Sibling Depression Social History Social History (Updated 09/21/22 @ 09:58 by Anny Sykes MA) Smoking packs per day: 0.5 Smoking cigarettes per day: 10.0 Years smoked: 10 Smoking pack-years: 5.00 Smoking status: Current every day smoker Tobacco type: cigarettes Alcohol intake: never Drinks per week: 2 Alcohol use details: Beer Substance use: current Substance use type: marijuana Other substance usage details: edibles and smoking marijuana daily Lack of Transportation: No Lack of Food: Never True Current Housing: I Have Housing Concerned About Future Housing: No Difficulty Paying Gas/Electric Bills: No Difficulty Paying for Meds: No Currently Unemployed: No Education: Associate Degree Difficulty w/ Childcare or Family Care: No Living arrangements: with family Additional occupation/education comments: [email or web address] Gender identity (if verbalized by the patient): Male Sexual Orientation (if Verbalized by the Patient): Straight or Heterosexual Spiritual care concerns: No Agree to blood products: Yes Anes - Eval Final PreProcedure Day of Procedure 10/19/22 08:50 Patient weight: normal Heart: regular rate and rhythm Lungs: clear to auscultation Airway: Mallampati scale class II Neurological: alert and oriented Last oral intake: >/= 8 hours ASA classification: II Emergent: no Anesthetic plan: proceed Anesthesia type and monitoring: general GIVS and standard monitoring Results Review: All pre-operative results and documents have been reviewed as part of the pre-operative evaluation. Informed Consent: The patient's anesthetic plan and its attendant risks and benefits were discussed with the patient/family/POA. Questions were solicited and answers provided to the satisfaction of the patient/family/POA.
[2022-10-19] MEDS: LACTATED RINGERS 1,000 ML 150 ML IV CONT (08:51)
--- NOTE | 2022-10-19 10:04 | SUR.OPER ---
EGD began at 954 and ended at 59. Colonoscopy began at 1003.
[2022-10-19 10:14] VITALS: BP 107/73; PULSE 66; RESP 21; O2SAT 97
[2022-10-19 10:24] VITALS: BP 105/71; PULSE 63; RESP 22; O2SAT 97
[2022-10-19 10:34] VITALS: BP 149/94; PULSE 62; RESP 22; O2SAT 100
== END 2022-10-19 10:40 | disposition home or self-care (01) ==
PROVIDERS: PCP Nurse Practitioner Adult Health; Visit Provider Internal Medicine Gastroenterology
PROC: 0DJ08ZZ Inspection of Upper Intestinal Tract, Via Natural or Artificial Opening Endoscopic (ICD-10-PCS; CPT 43235; principal; 2022-10-19 10:00)
DX: K92.1 Melena (principal); R19.7 Diarrhea, unspecified; K92.0 Hematemesis; K21.9 Gastro-esophageal reflux disease without esophagitis; I10 Essential (primary) hypertension; F43.10 Post-traumatic stress disorder, unspecified; F17.210 Nicotine dependence, cigarettes, uncomplicated; F12.90 Cannabis use, unspecified, uncomplicated; F41.9 Anxiety disorder, unspecified; F32.A Depression, unspecified
CPT/HCPCS: 43239; 45380; 87081; 88305; J2704; J7120

== ENCOUNTER 2022-10-25 08:08 | Outpatient (CLI) | payer OTHER, SELFPAY ==
--- NOTE | ~2022-10-25 | XR_ITS ---
Supine and upright views of the abdomen Clinical history: Gastroenteritis Findings: Bowel gas pattern is nonspecific. No evidence for obstruction or free air. No abnormal mass lesion or calcification is seen. Osseous structures are intact. Impression: No significant abnormality is seen. Reviewed, dictated and finalized at [facility]. Impression: No significant abnormality is seen.
[2022-10-25 19:32] LABS: Amylase 63 U/L (30-110)
[2022-10-28 21:10] LABS: H pylori, Urea Breath NOT DETECTED (NOT DETECTED)
== END 2022-10-25 08:09 | disposition home or self-care (01) ==
LOC: ANHBWCLAB 08:11
PROVIDERS: PCP Nurse Practitioner Adult Health; Visit Provider Nurse Practitioner Adult Health
DX: R10.9 Unspecified abdominal pain (principal); K52.9 Noninfective gastroenteritis and colitis, unspecified; K21.9 Gastro-esophageal reflux disease without esophagitis
CPT/HCPCS: 36415; 74019; 82150; 83013

== ENCOUNTER 2023-02-07 08:32 | Emergency (ER) | payer OTHER, SELFPAY ==
[2023-02-07 08:37] VITALS: BP 148/82; PULSE 82; RESP 16; TEMP 36.4; O2SAT 97
--- NOTE | 2023-02-07 09:07 | ED.URI ---
HPI - URI/Sore Throat General Chief Complaint: Upper Respiratory Infection Stated Complaint: Headache,Drainage Time Seen by Provider: 02/07/23 09:08 Source: patient, RN notes reviewed and old records reviewed Mode of arrival: ambulatory Limitations: no limitations History of Present Illness HPI Narrative: 32 year old male who presents to [facility] care with complaints of one week duration of headache, sinus congestion,drainage, sore throat and ear pressure,cough, sinus pain and some dizziness. Patient reports that he has had no fevers, has been taking Mucinex, DayQuil and also Sudafed for his symptoms.Patient denies any known ill contacts. MD elicited complaint: cough, sore throat, rhinorrhea, nasal congestion and sinus pain Onset (ago): week(s) (1) Pain scale (0-10): 8 Able to tolerate fluids by mouth: Yes Treatments prior to arrival: other (Mucinex, DayQuil and also Sudafed) Related Data Allergies Allergy/AdvReac Type Severity Reaction Status Date / Time strawberry Allergy Mild Unknown Verified 02/07/23 08:56 aloe Allergy Hives Verified 02/07/23 08:56 diphenhydramine Allergy Swelling Verified 02/07/23 08:56 [From Benadryl] of Lip/Tongue/Throat Review of Systems Review of Systems: CONSTITUTIONAL: Reports malaise,no chills, sweats, or fever. EYES: Denies visual changes, redness, or discharge. ENT: Reports rhinorrhea, congestion, sinus pain, otalgia and sore throat. CARDIOVASCULAR: Denies chest pain, palpitations, or edema. RESPIRATORY: Reports cough.? Denies dyspnea. GASTROINTESTINAL: Denies abdominal pain, nausea, vomiting, diarrhea SKIN: Denies rash or itching. MUSCULOSKELETAL: Denies myalgia. NEUROLOGIC: Reports headache and some dizziness All systems reviewed & are unremarkable except as noted in HPI and below PMFSH Past Medical History Medical History Anxiety Depression Fractures Right hand Hypertension PTSD (post-traumatic stress disorder) Upper respiratory infection, viral Surgical History Surgical History No pertinent past surgical history S/P wisdom tooth extraction Family History Family History Mother History of breast cancer Father EtOH dependence Hypertension Depression Mother Cancer Hypertension Depression Sibling Depression Social History Social History Smoking packs per day: 0.5 Smoking cigarettes per day: 10.0 Years smoked: 10 Smoking pack-years: 5.00 Smoking status: Current every day smoker Tobacco type: cigarettes Alcohol intake: never Drinks per week: 2 Alcohol use details: Beer Substance use: current Substance use type: marijuana Other substance usage details: edibles and smoking marijuana daily Lack of Transportation: No Lack of Food: Never True Current Housing: I Have Housing Concerned About Future Housing: No Difficulty Paying Gas/Electric Bills: No Difficulty Paying for Meds: No Currently Unemployed: No Education: Associate Degree Difficulty w/ Childcare or Family Care: No Living arrangements: with family Additional occupation/education comments: [employer] Gender identity (if verbalized by the patient): Male Sexual Orientation (if Verbalized by the Patient): Straight or Heterosexual Spiritual care concerns: No Agree to blood products: Yes Comments At time of signature, agree with nursing past medical, surgical, social and family history. There is no relevant family history pertinent to the presenting complaint Exam Narrative: GENERAL: Well-appearing, well-nourished, and in no acute distress. HEAD: Normocephalic EYES: PERRLA, conjunctivae clear ENT: Nares clear, turbinates edematous and erythematous, clear discharge. Mucous membranes moist. TM pearly verdugo with
== END 2023-02-07 09:40 | disposition home or self-care (01) ==
PROVIDERS: Emergency Provider Registered Nurse; PCP Nurse Practitioner Adult Health
DX: J02.0 Streptococcal pharyngitis (principal); F17.210 Nicotine dependence, cigarettes, uncomplicated; I10 Essential (primary) hypertension; F41.9 Anxiety disorder, unspecified; F32.A Depression, unspecified
CPT/HCPCS: 87880; 99213; G0463

== ENCOUNTER 2023-04-27 16:11 | Emergency (ER) | payer MEDICAID, SELFPAY ==
[2023-04-27 16:17] VITALS: BP 145/74; PULSE 85; RESP 16; TEMP 37.1; O2SAT 98
--- NOTE | 2023-04-27 16:37 | ED.GENADULT ---
HPI - General Adult General Chief complaint: Skin/Abscess/Foreign Body Stated complaint: Rash Source: patient, RN notes reviewed and old records reviewed Mode of arrival: ambulatory Limitations: no limitations History of Present Illness HPI narrative: 32-year-old male presents to the [facility] with complaint of pruritic rash to entire body. Patient states started last night after getting in the shower. Patient states thought was improving but then he laid down for nap and rash returned. MD complaint: Rash Onset (ago): day(s) (1) Related Data Allergies Allergy/AdvReac Type Severity Reaction Status Date / Time strawberry Allergy Mild Unknown Verified 02/28/23 11:17 aloe Allergy Hives Verified 02/28/23 11:17 diphenhydramine Allergy Swelling Verified 02/28/23 11:17 [From Benadryl] of Lip/Tongue/Throat Review of Systems Constitutional: Constitutional: Reports no additional constitutional complaints, Denies body ache(s), Denies chills, Denies fatigue, Denies fever(s) and Denies headache(s) Eyes: Eyes: Reports no additional eye complaints and Denies blurry vision ENT: Reports system reviewed and no additional complaints, except as documented, Denies vertigo, Denies dizziness, Denies ear discharge, Denies otalgia, Denies facial pain, Denies headache(s), Denies nasal congestion, Denies nasal discharge, Denies sinus pain, Denies sinus pressure and Denies sore throat Cardiovascular: Cardiovascular: Reports no additional cardiovascular complaints, Denies chest pain, Denies chest pain at rest, Denies rapid heart rate and Denies dyspnea Respiratory: Respiratory: Reports no additional respiratory complaints, Denies chest congestion, Denies cough, Denies pain on inspiration, Denies pain with cough and Denies dyspnea Gastrointestinal: Gastrointestinal: Denies abdominal pain, Denies diarrhea, Denies nausea and Denies vomiting Integumentary/Breasts: Skin/Breast: Reports rash Neurologic: Reports system reviewed and no additional complaints, except as documented, Denies vertigo, Denies dizziness and Denies headache(s) Endocrine: Endocrine: Denies fatigue PMF Past Medical History Medical History Anxiety Depression Fractures Right hand Hypertension PTSD (post-traumatic stress disorder) Upper respiratory infection, viral Surgical History Surgical History No pertinent past surgical history S/P wisdom tooth extraction Family History Family History Mother History of breast cancer Father EtOH dependence Hypertension Depression Mother Cancer Hypertension Depression Sibling Depression Social History Social History Smoking packs per day: 0.5 Smoking cigarettes per day: 10.0 Years smoked: 10 Smoking pack-years: 5.00 Smoking status: Current every day smoker Tobacco type: cigarettes Alcohol intake: never Drinks per week: 2 Alcohol use details: Beer Substance use: current Substance use type: marijuana Other substance usage details: edibles and smoking marijuana daily Lack of Transportation: No Lack of Food: Never True Current Housing: I Have Housing Concerned About Future Housing: No Difficulty Paying Gas/Electric Bills: No Difficulty Paying for Meds: No Currently Unemployed: No Education: Associate Degree Difficulty w/ Childcare or Family Care: No Living arrangements: with family Additional occupation/education comments: [employer] Gender identity (if verbalized by the patient): Male Sexual Orientation (if Verbalized by the Patient): Straight or Heterosexual Spiritual care concerns: No Agree to blood products: Yes Comments At the time of my signature, I reviewed and agree with the nursing past medical, surgical, social, and f
[2023-04-27] MEDS: FAMOTIDINE 20 MG TABLET 40 MG PO (16:45)
[2023-04-27] MEDS: predniSONE 20 MG TABLET 60 MG PO (16:46)
== END 2023-04-27 17:02 | disposition home or self-care (01) ==
PROVIDERS: Emergency Provider Registered Nurse; PCP Nurse Practitioner Adult Health
DX: L23.9 Allergic contact dermatitis, unspecified cause (principal); F12.90 Cannabis use, unspecified, uncomplicated; F17.210 Nicotine dependence, cigarettes, uncomplicated; I10 Essential (primary) hypertension; F41.9 Anxiety disorder, unspecified; F32.A Depression, unspecified
CPT/HCPCS: 99213; A9270; G0463; J7512

== ENCOUNTER 2023-08-01 11:27 | Outpatient (CLI) | payer OTHER, SELFPAY ==
[2023-08-01 19:16] LABS: Hematocrit 49.1 % (42.0-52.0); Hemoglobin 15.6 g/dL (14.0-18.0); Mean Corpuscular HGB Conc 31.8 g/dl (32-36); Mean Corpuscular Hemoglobin 28.4 pg (26-34); Mean Corpuscular Volume 89.3 fl (80-100); Mean Platelet Volume 11.4 fl (7.4-10.4); Platelet Count Result 248 k/mm3 (150-375); Red Cell Distribution Width 13.4 % (11.5-14.5); White Blood Count 11.6 K/mm3 (4.5-10.0)
[2023-08-01 19:35] LABS: Alanine Aminotransferase 24 U/L (6-50); Alkaline Phosphatase 71 U/L (38-126); Anion Gap 9 mmol/L (4-12); Aspartate Amino Transferase 51 U/L (17-59); Blood Urea Nitrogen 14 mg/dL (9-20); Calcium 10.1 mg/dL (8.4-10.2); Carbon Dioxide 24 mmol/L (22-30); Chloride 106 mmol/L (98-107); Cholesterol 127 mg/dL (0-200); Estimated Glomerular Filt Rate > 60; Glucose 102 mg/dL (65-110); HDL Direct 34 mg/dL; Potassium 3.8 mmol/L (3.4-5.0); Sodium 139 mmol/L (137-145); Triglycerides 84 mg/dL (<150)
[2023-08-01 19:46] LABS: LDL Cholesterol Direct 84 mg/dL
== END 2023-08-01 11:28 | disposition home or self-care (01) ==
LOC: ANHBWCLAB 11:29
PROVIDERS: PCP Nurse Practitioner Adult Health; Visit Provider Nurse Practitioner Adult Health
DX: Z13.9 Encounter for screening, unspecified (principal)
CPT/HCPCS: 36415; 80053; 80061; 84443; 85027

== ENCOUNTER 2023-11-07 11:50 | Outpatient (CLI) | payer OTHER, SELFPAY ==
[2023-11-12 07:47] LABS: pH 5.2
[2023-11-12 07:49] LABS: Amphetamine Negative; Barbiturates Negative; Marijuana Metabolites Comment Positive
[2023-11-12 07:50] LABS: Benzodiazepines Negative; Cocaine Metabolite Negative; Methadone Metabolite Negative
[2023-11-12 07:51] LABS: Opiates Negative
== END 2023-11-07 11:51 | disposition home or self-care (01) ==
LOC: ANHBWCLAB 11:51
PROVIDERS: PCP Nurse Practitioner Adult Health; Visit Provider Nurse Practitioner Adult Health
DX: Z79.899 Other long term (current) drug therapy (principal)
CPT/HCPCS: 80299

== ENCOUNTER 2024-01-04 08:46 | Emergency (ER) | payer OTHER, SELFPAY ==
[2024-01-04 08:58] VITALS: BP 142/77; PULSE 89; RESP 16; TEMP 37.4; O2SAT 98
--- NOTE | 2024-01-04 09:01 | ED.URI ---
HPI - URI/Sore Throat General Chief Complaint: Upper Respiratory Infection Stated Complaint: Sore Throat Time Seen by Provider: 01/04/24 09:02 History of Present Illness HPI Narrative: 33-year-old male presented for complaint of sore throat. Onset yesterday. He states while trying to eat dinner he felt like he could not swallow the food due to my throat felt like glass. Endorses waking this morning with right ear pain And worsening throat pain. He has taken ibuprofen and cranberry pills for bilateral lower back pain, stating his kidneys hurt. Denies cough, shortness of breath, wheezing, nausea, vomiting, diarrhea or lethargy. Related Data Allergies Allergy/AdvReac Type Severity Reaction Status Date / Time strawberry Allergy Mild Unknown Verified 08/01/23 10:36 aloe Allergy Hives Verified 08/01/23 10:36 diphenhydramine Allergy Swelling Verified 08/01/23 10:36 [From Benadryl] of Lip/Tongue/Throat Review of Systems Review of Systems: CONSTITUTIONAL: Denies body aches, fever, chills, or sweats. EYES: Denies visual changes, redness, or discharge. ENT: reports sore throat, right otalgia Denies rhinorrhea, congestion CARDIOVASCULAR: Denies chest pain, palpitations, or edema. RESPIRATORY: Denies dyspnea. GASTROINTESTINAL: Denies abdominal pain, nausea, vomiting, or diarrhea. SKIN: Denies rash, itching, or wounds. MUSCULOSKELETAL: Denies back pain, joint pain NEUROLOGIC: Denies headache PMFSH Past Medical History Medical History Anxiety Depression Fractures Right hand Hypertension PTSD (post-traumatic stress disorder) Upper respiratory infection, viral Surgical History Surgical History No pertinent past surgical history S/P wisdom tooth extraction Family History Family History Mother History of breast cancer Father EtOH dependence Hypertension Depression Mother Cancer Hypertension Depression Sibling Depression Social History Social History Smoking packs per day: 0.5 Smoking cigarettes per day: 10.0 Years smoked: 10 Smoking pack-years: 5.00 Smoking status: Current every day smoker Tobacco type: cigarettes Alcohol intake: never Drinks per week: 2 Alcohol use details: Beer Substance use: current Substance use type: marijuana Other substance usage details: edibles and smoking marijuana daily Lack of Transportation: No Lack of Food: Never True Current Housing: I Have Housing Concerned About Future Housing: No Difficulty Paying Gas/Electric Bills: No Difficulty Paying for Meds: No Currently Unemployed: No Education: Associate Degree Difficulty w/ Childcare or Family Care: No Living arrangements: with family Additional occupation/education comments: [employer] Gender identity (if verbalized by the patient): Male Sexual Orientation (if Verbalized by the Patient): Straight or Heterosexual Spiritual care concerns: No Agree to blood products: Yes Exam Narrative: GENERAL: mildly Ill-appearing, no acute distress. EYES: conjunctivae clear ENT: Mucous membranes moist. TM pearly verdugo with normal light reflex bilaterally, right TM mildly erythematous; no tragal tenderness. Oropharynx erythematous Tonsils enlarged 2+ with exudate. No drooling, no hoarseness, no trismus, uvula midline. No tripod positioning, hot potato voice, or soft palate swelling. NECK: Supple. No lymphadenopathy CHEST: Clear to auscultation, breath sounds equal. No respiratory distress, speaks in full sentences. HEART: Regular rate and rhythm. No murmur heard. MUSC: No CVA tenderness SKIN: Warm, dry, no rash. NEURO: Alert and oriented x3. Course Course Emergency Course: Patient is aware of diagnosis, understands and agrees to
[2024-01-04 09:08] LABS: EDSTREPNEGPOS1 Positive (Negative)
== END 2024-01-04 09:13 | disposition home or self-care (01) ==
PROVIDERS: Emergency Provider Nurse Practitioner Family
DX: J02.0 Streptococcal pharyngitis (principal); F17.210 Nicotine dependence, cigarettes, uncomplicated; F12.90 Cannabis use, unspecified, uncomplicated; I10 Essential (primary) hypertension
CPT/HCPCS: 87880; 99213; G0463

== ENCOUNTER 2024-07-31 18:41 | Emergency (ER) | payer OTHER, SELFPAY ==
--- OUTSIDE RECORDS SUMMARY | 2024-07-31 18:43 | XMS_ITS | Referral Summary ---
Author Organization [facility] Address [address] [place] [address] Care Team Providers Care Valance Cutter Name Role Phone Butchalexandria Estrella HILTON Primary Care Provider [phone] Allergies Active Allergy Reactions Criticality Noted Date Comments Aloe Vera-Dimethicone Hives Medium 10/23/2022 Diphenhydramine Anaphylaxis High 10/23/2022 Medications azithromycin (ZITHROMAX) 250 mg tablet Take 1 tablet (250 mg total) by mouth daily. Take first 2 tablets together, then 1 every day until finished. 6 tablet 12/11/2017 Active benzonatate (TESSALON) 100 mg capsuleIndicati ons:Cough Take 1 capsule (100 mg total) by mouth every 8 (eight) hours. 21 capsule 12/11/2017 Active ibuprofen (ADVIL,MOTRIN) 800 mg tablet Take 1 tablet (800 mg total) by mouth 3 (three) times a day. 21 tablet 12/11/2017 Active guaiFENesin-cod eine (GUAITUSS AC) liquid 100-10 mg/5 mL Take 5 mL by mouth every 4 (four) hours as needed for cough. 60 mL 12/11/2017 Active polyethylene glycol (MIRALAX) 17 gram packetIndicatio ns:constipation Take 1 packet (17 g total) by mouth daily 14 packet 06/07/2020 Active naproxen (NAPROSYN) 500 mg tablet Take 1 tablet (500 mg total) by mouth 2 (two) times a day as needed for pain Take with food. 30 tablet 10/15/2021 Active ondansetron (ZOFRAN) 4 mg tablet Take 1 tablet (4 mg total) by mouth every 4 (four) hours as needed for nausea or vomiting 15 tablet 07/31/[address] (PROTONIX) 20 mg EC tablet Take 1 tablet (20 mg total) by mouth daily 20 tablet 07/31/2022 Active ondansetron (ZOFRAN) 4 mg tablet Take 1 tablet (4 mg total) by mouth every 4 (four) hours as needed for nausea or vomiting 15 tablet 10/23/[address] (PROTONIX) 20 mg EC tablet Take 1 tablet (20 mg total) by mouth daily 20 tablet 10/23/2022 Active dicyclomine (BENTYL) 20 mg tablet Take 1 tablet (20 mg total) by mouth 2 (two) times a day 20 tablet 10/23/2022 Active Active Problems No known active problems Social History Tobacco Use Types Packs/Day Years Used Date Smoking Tobacco: Every Day Smokeless Tobacco: Never Tobacco Cessation:Ready to Q uit: Not Asked; Counseling Given: Not Answered Alcohol Use Standard Drinks/Week Comments Not Currently 0 (1 standard drink = 0.6 oz pur e alcohol) rare Personal Safety Answer Date Recorded Getting School Help Needed Not on file 10/10 Sex and Gender Information Value Date Recorded Sex Assigned at Not on file Legal Sex Male 1:47 PM DIRECT[employer] Gender Identity Not on file Sexual Orientation Not on file Last Filed Vital Signs Vital Sign Reading Time Taken Comments Blood Pressure 117/69 10/23/2022 10:18 AM CDT Pulse 62 10/23/2022 10:18 AM CDT Temperature 36.8 C (98.2 F) 10/23/2022 10:18 AM CDT Respiratory Rate 16 10/23/2022 10:18 AM CDT Oxygen Saturation 99% 10/23/2022 10:18 AM CDT Inhaled Oxygen Concentration - - Weight 88.5 kg (195 lb) 10/23/2022 7:57 AM CDT Height 177.8 cm (5' 10 ) 07/31/2022 7:01 AM CDT Body Mass Index 27.98 07/31/2022 7:01 AM CDT Plan of Treatment Not on file Insurance [facility] Care Teams Valance Cutter Relationship Specialty Start Date End Date Estrella Laird NP PCP - General Nurse Practitioner 10/23/22
--- OUTSIDE RECORDS SUMMARY | 2024-07-31 18:43 | XMS_ITS | Clinical Summary ---
Author Organization [facility] Address [address] [place] [address] Care Team Providers Care Faculty Physician Name Role Phone Eitan Estrella HILTON Primary Care Provider [phone] Allergies Active Allergy Reactions Criticality Noted Date [...] on file Legal Sex Male 1:47 PM [employer] Gender Identity Not on file Sexual Orientation Not on file Obstetrics History Last Filed Vital Signs Vital Sign Reading [...] 07/31/2022 7:01 AM CDT Plan of Treatment Health Maintenance Due Date Last Done Comments Depression Screening 1991 Hepatitis C Screening 1991 DTaP/Tdap/Td Vaccine (1 - Tdap) 12/09/2002 Varicella Vaccines (1 of 2 - 13+ 2-dose series) 12/09/2004 Hepatitis B Screening 12/09/2009 Regular Well Visit/Exam 18-64 12/09/2009 Pneumococcal vaccine <65 (1 of 2 - PCV) 12/09/2010 Influenza Vaccine (#1) 2023 HPV Vaccines Aged Out No longer eligi ble based on patient's age to complete this topic Insurance Care Teams Faculty Physician Relationship Specialty Start Date End Date Estrella Laird NP PCP - General Nurse Practitioner 10/23/22
[2024-07-31 18:53] VITALS: BP 132/78; PULSE 70; RESP 16; TEMP 37.2; O2SAT 98
--- NOTE | 2024-07-31 20:03 | ED_ITS ---
HPI - Eye Problem General Chief complaint: Eye Problems Stated complaint: Left Eye Problem Time Seen by Provider: 07/31/24 18:45 Source: patient and RN notes reviewed Mode of arrival: ambulatory Limitations: no limitations History of Present Illness HPI Narrative: 33-year-old male presents Express Care complaining of a left eye problem. Patient stated symptoms started 2 days ago when he fell in his left eye was very watery. Since then he reports having draining yellow discharge coming from his left eye. This is left eye is very crusting in the morning. Reports his eye is red and feels irritated. Denies any pain in his eye, nausea, vomiting, or vision changes. Patient says due to the excessive tearing in his left eye and feels like it is hard to see of his left eye but when he wipes tears away, he is able to see out of his left eye. Patient denies feeling like there is something in his eye. Patient wears glasses and no longer wears contacts. Patient denies any other symptoms Related Data Home Medications ?Medication ?Instructions ?Recorded ?Confirmed ?Last Taken ?Type bupropion HCl 150 mg 24 hr tablet, mg PO 07/31/24 Unknown History extended release Allergies Allergy/AdvReac Type Severity Reaction Status Date / Time strawberry Allergy Mild Unknown Verified 07/31/24 18:52 aloe Allergy Hives Verified 07/31/24 18:52 diphenhydramine (From Allergy Swelling Verified 07/31/24 18:52 Benadryl) of Lip/Tongue/Throat Review of Systems Review of Systems: CONSTITUTIONAL: Denies fever, chills, or sweats. EYES: Denies visual changes. Positive for redness, and discharge. ENT: Denies rhinorrhea, congestion, sore throat, or otalgia. CARDIOVASCULAR: Denies chest pain, palpitations, or edema. RESPIRATORY: Denies cough or dyspnea. GASTROINTESTINAL: Denies abdominal pain, nausea, vomiting, or diarrhea. GENITOURINARY: Denies dysuria or hematuria. SKIN: Denies rash or itching. MUSCULOSKELETAL: Denies back pain, joint pain, or myalgia. NEUROLOGIC: Denies headache, numbness, or weakness. PSYCHIATRIC: Denies anxiety or depression. All other systems reviewed are negative, except as documented in HPI. [facility] Past Medical History Medical History Upper respiratory infection, viral PTSD (post-traumatic stress disorder) Anxiety Depression Fractures Right hand Hypertension Surgical History Surgical History S/P wisdom tooth extraction No pertinent past surgical history Family History Family History Mother History of breast cancer Father EtOH dependence Hypertension Depression Mother Cancer Hypertension Depression Sibling Depression Social History Social History Smoking packs per day: 0.5 Smoking cigarettes per day: 10.0 Years smoked: 10 Smoking pack-years: 5.00 Smoking status: Current every day smoker Tobacco type: cigarettes Alcohol intake: never Drinks per week: 2 Alcohol use details: Beer Substance use: current Substance use type: marijuana Other substance usage details: edibles and smoking marijuana daily Lack of Transportation: No Lack of Food: Never True Current Housing: I Have Housing Concerned About Future Housing: No Difficulty Paying Gas/Electric Bills: No Difficulty Paying for Meds: No Currently Unemployed: No Education: Associate Degree Difficulty w/ Childcare or Family Care: No Living arrangements: with family Additional occupation/education comments: [employer] Gender identity (if verbalized by the patient): Male Sexual Orientation (if Verbalized by the Patient): Straight or Heterosexual Spiritual care concerns: No Agree to blood products: Yes Comments At the time of my signature, I reviewed and agree with the nursing past medical, surgical, social, and family history. There is no relevant family history pertinent to the patient complaint. Exam Narrative: GENERAL: This is a well-nourished, well-developed adult, in no apparent distress. They are non ill-appearing, nontoxic appearing. HEAD: normocephalic, atraumatic. EYES: Sclera clear/white. Left conjunctiva injected with watery discharge. Right conjunctiva normal. Vision is grossly intact. Extraocular movements intact. Pupils PERRLA. Upper and lower eyelids are normal bilaterally. EARS: External ears normal, auditory canals clear and without drainage, TMs normal without perforation. Hearing grossly intact. NOSE: External nose normal with no obvious nasal discharge, nasal turbinates without redness, no rhinorrhea. THROAT: Mucous membranes moist, posterior pharynx clear, without erythema or swelling. Uvula midline. NECK: Normal range of motion CARDIOVASCULAR: Regular rate and rhythm RESPIRATORY: Respiratory rate normal, respiratory effort nonlabored, no respiratory distress GASTROINTESTINAL: Abdomen soft, non-tender, nondistended. Bowel sounds are acti ve. No hepato-splenomegaly, or palpable masses. No guarding. SKIN: warm, Dry, intact with no suspicious lesions or rash, good texture and turgor. NEURO: awake, alert, and oriented to person, place and time. There were no obvious focal neurologic abnormalities. EXTREMITIES: No joint tenderness, effusion, or edema noted. Course Course Emergency Course: Portions of this record may have been created with voice recognition software Level of Care: Express Care Visit Vital Signs Vital signs: Vital Signs Temperature 99.0 F 07/31/24 18:53 Pulse Rate 70 07/31/24 18:53 Respiratory Rate 16 07/31/24 18:53 Blood Pressure 132/78 07/31/24 18:53 Pulse Oximetry 98 07/31/24 18:53 Oxygen Delivery Room Air 07/31/24 18:53 Temperature 99.0 F 07/31/24 18:53 Pulse Rate 70 07/31/24 18:53 Respiratory Rate 16 07/31/24 18:53 Blood Pressure 132/78 07/31/24 18:53 Pulse Oximetry 98 07/31/24 18:53 Oxygen Delivery Room Air 07/31/24 18:53 Reviewed MDM - Eye Problem MDM Narrative Medical decision making narrative: Symptoms are consistent with a bacterial conjunctivitis. Will treat with polymyxin B trimethoprim eyedrops. Discussed physical exam findings. Advised supportive measures and signs/symptoms to go to the ER. Pt is appropriate for outpt treatment and f/u. Differential Diagnosis Differential diagnosis: Likely corneal abrasion, conjunctivitis and glaucoma Critical Care Time Critical Care Time Critical Care Time: No Discharge Plan Discharge Clinical Impression: Conjunctivitis Qualifiers: Conjunctivitis type: acute Acute conjunctivitis type: bacterial Laterality: left Qualified Code(s): H10.32 - Unspecified acute conjunctivitis, left eye Patient Disposition: Home Condition: Stable Instructions: Antibiotic Form, Conjunctivitis (ED) Additional Instructions: Your exam today shows Conjunctivitis, You have been given a prescription for eye drops. Use the eye drops as instructed. If you are not better in two (2) days, you need to follow up with an outside plant supervisor. Do not rub the eye or put anything else in the eye, this can cause abrasions (scratches) on the eye or lead to vision loss. Also it is important not to touch the tube or tip of drops to the eye, as this can cause further infection. Wash your hands very well before instilling the medication. Handwashing can help prevent the spread of disease. Follow up with PCP in 7-10 days Return to ER she developed vision changes, worsening symptoms or concerns, severe eye pain, or nausea or vomiting. Contact [facility] if you need an Information Technology Consultant Patient Language: Greek Prescriptions: New polymyxin B sulf-trimethoprim 10,000 unit- 1 mg/mL drops 1 drp LEFT EYE Q3H 10 Days Qty: 10 0RF Rx Instructions: while awake; do not exceed 6 doses in 24 hours No Action bupropion HCl 150 mg tablet extended release 24 hr PO Follow-up/Referrals: Bessy,Lizabeth Paulino APN [Primary Care Provider] - Stand Alone Forms: Work/School Release IP Time of Disposition: 19:21
== END 2024-07-31 19:25 | disposition home or self-care (01) ==
PROVIDERS: PCP Nurse Practitioner Family
DX: H10.32 Unspecified acute conjunctivitis, left eye (principal); I10 Essential (primary) hypertension; F17.210 Nicotine dependence, cigarettes, uncomplicated
CPT/HCPCS: 99213; G0463